=== PATIENT | female | born 1960 | race Caucasian/White ===

== ENCOUNTER 2016-04-18 07:19 | Inpatient (IN) | payer OTHER ==
[~2016-04-18] VITALS: Ht 167.6 cm; Wt 91.9 kg
[2016-04-18] VITALS (11 sets, daily range): BP systolic 82–149; BP diastolic 22–104; PULSE 124–147; RESP 30–36; TEMP 100.9; Ht 167.6 cm; Wt 91.9 kg
[2016-04-18] MEDS ORDERED: SOD CHLORIDE 0.9% 500 ML IV STA (07:21)
[2016-04-18] MEDS ORDERED: ASPIRIN 300 MG SUPP PR STA (07:21)
[2016-04-18] MEDS ORDERED: VANCOMYCIN 1 GM (PMX) 250 ML IVPB ONE (07:30)
[2016-04-18] MEDS ORDERED: PIPER-TAZO 3.375 GM IV (PMX) 100 ML IVPB STA (07:30)
[2016-04-18 07:52] LABS: ADD SCAN DIFF NO
[2016-04-18] MEDS ORDERED: SOD CHLORIDE 0.9% 1,000 ML IV ONE ×4 (08:00→12:00)
[2016-04-18 08:01] LABS: ABNORMAL IP MESSAGE 1; HEMATOCRIT 51.8 % (37.0-47.0); HEMOGLOBIN 16.1 g/dl (12.0-16.0); MEAN CORPUSCULAR HEMOGLOBIN 29.7 pg (29.0-33.0); MEAN CORPUSCULAR HGB CONC 31.1 g/dl (32.0-37.0); MEAN CORPUSCULAR VOLUME 95.6 fl (82.0-101.0); MEAN PLATELET VOLUME 11.2 fl (7.4-10.4); PLATELET COUNT 474 10^3/UL (140-415); RED BLOOD COUNT 5.42 10^6/ul (4.20-5.40); RED CELL DISTRIBUTION WIDTH 13.2 % (11.5-14.5); WHITE BLOOD COUNT 25.9 10^3/ul (4.8-10.8)
[2016-04-18 08:03] LABS: ALBUMIN 3.6 g/dl (3.3-4.9)
[2016-04-18 08:05] LABS: CREATININE 2.33 mg/dl (0.44-1.00)
[2016-04-18 08:06] LABS: ALBUMIN/GLOBULIN RATIO 1.02; BILIRUBIN,INDIRECT 0.3 mg/dl (0-1.1); BILIRUBIN,TOTAL 0.3 mg/dl (0.2-1.3); CALCIUM 8.5 mg/dl (8.4-10.2); TOTAL PROTEIN 7.1 g/dl (6.1-8.1)
[2016-04-18 08:09] LABS: INR 1.3; PROTIME 16.3 Sec (12.2-14.2); PT RATIO 1.3
[2016-04-18 08:10] LABS: PARTIAL THROMBOPLASTIN TIME 28.1 Sec (25.0-35.0)
[2016-04-18 08:27] LABS: AADO2 Arterial 410.4 mmHg (7.0-24.0); Allen Test ACCEPTAB; Arterial Base Excess -19.3 mmol/L (-3.0-3); Arterial COHb 0.1 % (0.0-3.0); Arterial Fraction of Oxyhgb 98.6 % (93.0-99.0); Arterial HCO3 7.5 mmol/L (22.0-26.0); Arterial MetHb 0.6 % (0.0-1.5); Arterial Total Hemglobin 16.7 g/dl (12.0-18.0); Blood Gas Low PEEP Setting 0 cmH2O; MODE VENT - AC
[2016-04-18 08:28] LABS: ADD UMIC YES; URINE BILIRUBIN (Dip) NEGATIVE (NEGATIVE); URINE BLOOD (Dip) 2+ (NEGATIVE); URINE COLOR YELLOW (YELLOW); URINE KETONES (Dip) NEGATIVE (NEGATIVE); URINE LEUKOCYTE ESTERASE (Dip) 1+ (NEGATIVE); URINE NITRITE (Dip) NEGATIVE (NEGATIVE); URINE TOTAL PROTEIN (Dip) 1+ (NEGATIVE); URINE UROBILINOGEN (Dip) 0.2 E.U./dL (0.1-1.0)
[2016-04-18] MEDS ORDERED: SOD CHLORIDE 0.9% 500 ML IV ONE (08:30)
--- NOTE | 2016-04-18 08:39 | RADRPT ---
PROCEDURE: Chest x-ray CLINICAL INDICATION: Chest pain TECHNIQUE: Chest single view COMPARISON: None FINDINGS: Tracheostomy tube is in good position. There is a ventriculoperitoneal shunt along the left chest w all. The heart is normal in size. The pulmonary vessels are normal in caliber. Lung volumes are lo w with mild basilar atelectasis. Lungs otherwise clear. The costophrenic angles are sharp. The vi sualized bony thorax is unremarkable. IMPRESSION: 1. Tracheostomy tube remains good position. 2. Ventriculoperitoneal shunt along the left chest wall. 3. Low lung volumes with basilar atelectasis RPTAT: HH .Kody Hernandez MD, Date Time Electronically viewed and signed by .Kody Hernandez MD, on 04/18/2016 08:38 .W/
[2016-04-18 08:45] LABS: BACTERIA,URINE MANY; SQUAMOUS EPITHELIAL CELL,UR MANY
[2016-04-18 09:33] LABS: LYMPHOCYTES # 1.3 10^3/ul (0.8-2.9); MONOCYTE # 2.6 10^3/ul (0.3-0.9); MYELOCYTES # 0.8; NEUTROPHIL # 17.1 10^3/ul (1.6-7.5); SMUDGE CELLS% Rare
[2016-04-18] MEDS ORDERED: INSULIN REGULAR, HUMAN 100 UNIT in SOD CHLORIDE 0.9% 99 ML IV STA ×2 (09:44)
[2016-04-18] MEDS ORDERED: NA POLYST SULFON 15 GM/60 ML BTL PO ONE (10:00)
--- NOTE | 2016-04-18 10:11 | ERA ---
ER Documentation Chief Complaint Date/Time DATE: 04/18/16 TIME: 09:40 Chief Complaint pt here with tachycardia, faint pulse, trach/vent pt, from [place] HPI This 55-year-old female is brought in for "unable to appreciate good vital signs " according to the snf paperwork. Very little other information was given. Going to the paramedics the heart rate was very high and according to their EKG that showed acute SC. She was brought in as a code STEMI. Patient has a trach vent patient who according to report from family to the paramedics is usually alert and oriented. She is noncommunicative at this time. ROS All systems reviewed and are negative except as per history of present illness. Medications Home Meds Reported Medications Albuterol Sulfate* (Albuterol Sulfate* Neb) 0.083%-3 Ml Neb, 2.5 MG NEB Q6 Y for SHORTNESS OF BREATH, #30 VIAL 04/18/16 Albuterol Sulfate* (Albuterol Sulfate* Neb) 0.083%-3 Ml Neb, 2.5 MG NEB Q3H Y for WHEEZING AND SOB, #30 VIAL 04/18/16 Chlorhexidine Gluconate (Peridex) 473 Ml Mouthwash, 15 ML MM Q12, BOTTLE 04/18/16 Docusate Sodium* (Colace*) 100 Mg Capsule, 100 MG GTB BID, #60 CAP 04/18/16 Heparin Sod (Porcine) (Heparin) 1,000 Unit/Ml Soln, 5000 UNIT IJ Q12 04/18/16 Levetiracetam* (Keppra* (Ped)) 100 Mg/Ml Liq, 1500 MG GTB BID for 30 Days, BOTTLE 04/18/16 Lisinopril* (Lisinopril*) 20 Mg Tablet, 20 MG GTB DAILY, #30 TAB 04/18/16 Famotidine* (Pepcid*) 20 Mg Tablet, 20 MG GTB QHS, #30 TAB 04/18/16 Levothyroxine Sodium* (Synthroid*) 75 Mcg Tablet, 75 MCG GTB BEFORE BREAKFAST, # 30 TAB 04/18/16 Acetaminophen* (Acetaminophen*) 650 Mg Tablet, 650 MG GTB DAILY Y for PAIN AND OR ELEVATED TEMP, #30 TAB 04/18/16 Acetaminophen* (Acetaminophen*) 650 Mg Tablet, 650 MG GTB TRACH CHANGE Y for PAIN AND OR ELEVATED TEMP, #30 TAB 04/18/16 Cran/Vitc/Mannose/Inulin/Brom (Uti-Stat Liquid) 3,875 Mg/30 Ml Liquid, 3875 MG GTB DAILY 04/18/16 Allergies Allergies: Coded Allergies: No Known Drug Allergies (Verified Allergy, Unknown, 04/18/16) PMhx/Soc History of Surgery: Yes (trach, g-tube) Hx Neurological Disorder: Yes (seizure) Hx Miscellaneous Medical Probl: Yes (trach/vent, thyroid, head injury) Smoking Status: Unknown if ever smoked Physical Exam Vitals Vital Signs Date Time Temp Pulse Resp B/P Pulse Ox O2 Delivery O2 Flow Rate FiO2 04/18/16 15:44 154 41 133/24 100 Mechanical Ventilator Trach Collar 04/18/16 15:30 99.7 153 41 118/33 100 Mechanical Ventilator Trach Collar 04/18/16 14:13 149 127/69 04/18/16 14:04 99.5 149 41 91/70 96 Mechanical Ventilator Trach Collar 04/18/16 12:44 99.5 143 42 87/45 98 Mechanical Ventilator Trach Collar 04/18/16 12:15 149 136/99 04/18/16 12:00 99.6 155 48 89/64 96 Mechanical Ventilator Trach Collar 04/18/16 11:27 42 96 70 04/18/16 10:13 101.0 150 34 84/62 99 Mechanical Ventilator Trach Collar 04/18/16 08:46 151 22 88/65 97 Mechanical Ventilator 04/18/16 08:28 40 100 100 04/18/16 07:35 100.2 171 18 105/37 100 Physical Exam Const: [] Ill-appearing Head: Atraumatic Eyes: Normal Conjunctiva, PERRLA, unable to assess as extraocular muscles ENT: Normal External Ears, Nose and Mouth., Dry mucous membranes of mouth Neck: , no JVD Resp: Poor inspiration with mild rhonchi on ventilator-assisted ventilations Cardio: Regular tachycardia, no murmurs appreciated Abd: Soft,, non distended. Normal bowel sounds Skin: Clammy and mottled Back: No midline or flank tenderness Ext: No cyanosis, or edema Neur: Awake and alert, some movements, unable to the assess of all 4 extremities removed., Some flinching to pain Result Diagram: 04/18/16 0742 04/18/16 1331 Results 24 hrs Laboratory Tests Test 04/18/16 07:30 04/18/16 07:42 04/18/16 08:08 04/18/16 08:17 Troponin I 0.091ng/ml Activated Partial Thromboplast Time 28.1Sec Alanine Aminotransferase (ALT/SGPT) 171IU/L Albumin 3.6g/dl Albumin/Globulin Ratio 1.02 Alkaline Phosphatase 212IU/L Anion Gap 37 Aspartate Amino Transf (AST/SGOT) 99IU/L Band Neutrophils % 15.0% Basophils # 10^3/ul Basophils % % Blood Urea Nitrogen 33mg/dl Calcium Level 8.5mg/dl Carbon Dioxide Level 9mmol/L Chloride Level 97mmol/L Creatinine 2.33mg/dl Differential Comment MANUAL DIF Direct Bilirubin 0.00mg/dl Eosinophils # 10^3/ul Eosinophils % % Globulin 3.50g/dl Glucose Level 939mg/dl Hematocrit 51.8% Hemoglobin 16.1g/dl INR International Normalized Ratio 1.30 Indirect Bilirubin 0.3mg/dl Lactic Acid Level 16.5mmol/L Lymphocytes # 1.310^3/ul Lymphocytes % 5.0% Mean Corpuscular Hemoglobin 29.7pg Mean Corpuscular Hemoglobin Concent 31.1g/dl Mean Corpuscular Volume 95.6fl Mean Platelet Volume 11.2fl Metamyelocytes # 0.3 Metamyelocytes % 1.0% Monocytes # 2.610^3/ul Monocytes % 10.0% Myelocytes # 0.8 Myelocytes % 3.0% Neutrophils # 17.110^3/ul Neutrophils % 66.0% Nucleated Red Blood Cells # 10^3/ul Nucleated Red Blood Cells % /100WBC Platelet Count 77754^3/UL Potassium Level 6.0mmol/L Prothrombin Time 16.3Sec Prothrombin Time Ratio 1.3 Red Blood Count 5.4210^6/ul Red Cell Distribution Width 13.2% Smudge Cells Rare Sodium Level 137mmol/L Total Bilirubin 0.3mg/dl Total Protein 7.1g/dl White Blood Count 25.910^3/ul Urine Bacteria MANY Urine Bilirubin NEGATIVE Urine Clarity SLIGHTLY CLOUDY Urine Color YELLOW Urine Glucose 0.5%% Urine Hemoglobin 2+ Urine Ketones NEGATIVE Urine Leukocyte Esterase 1+ Urine Microscopic RBC 2-5/HPF Urine Microscopic WBC 2-5/HPF Urine Nitrite NEGATIVE Urine Specific [place] 1.025 Urine Squamous Epithelial Cells MANY Urine Total Protein 1+ Urine Urobilinogen 0.2 E.U./dL Urine pH 5.0 Arterial Blood HCO3 7.5mmol/L Arterial Blood Base Excess -19.3mmol/L Arterial Blood Oxygen Saturation 99.3mmHG David Test ACCEPTAB Arterial Blood Gas Puncture Site Right Radial Arterial Blood Carboxyhemoglobin 0.1% Arterial Blood Date Drawn 04/18/2016 8:20:52 AM Arterial Blood Methemoglobin 0.6% Arterial Blood pCO2 (Temp correct) 22.0mmhg Arterial Blood pH (Temp corrected) 7.151 Arterial Blood pO2 (Temp corrected) 280.6mmHG Blood Gas A-a O2 Differential 410.4mmHg Blood Gas Actual Respiration Rate 40 Blood Gas Critical Value Read Back DR. BEAULIEU Blood Gas Low PEEP Setting 0cmH2O Blood Gas Modality VENT - AC Blood Gas Notified Time 04/18/2016 8:27:48 AM Blood Gas Notified Whom RT Blood Gas Respiration Rate 16.0 Blood Gas Specimen Source Blood arterial Blood Gas Temperature 37.0C Blood Gas Tidal Volume 500.0mL FiO2 100.0% Oxyhemoglobin Percent 98.6% Total Hemoglobin 16.7g/dl Test 04/18/16 09:55 04/18/16 10:31 04/18/16 11:56 04/18/16 12:20 Lactic Acid Level 10.9mmol/L 9.6mmol/L Bedside Glucose > 595mg/dL > 595mg/dL Anion Gap 23 Blood Urea Nitrogen 35mg/dl Calcium Level 7.2mg/dl Carbon Dioxide Level 10mmol/L Chloride Level 110mmol/L Creatinine 2.05mg/dl Glucose Level 636mg/dl Potassium Level 4.2mmol/L Sodium Level 139mmol/L Test 04/18/16 12:55 04/18/16 13:31 04/18/16 13:32 04/18/16 14:12 Bedside Glucose 507mg/dL 434mg/dL Anion Gap 22 Blood Urea Nitrogen 35mg/dl Calcium Level 7.0mg/dl Carbon Dioxide Level 11mmol/L Chloride Level 112mmol/L Creatine Kinase 146IU/L Creatine Kinase Index 1.5 Creatinine 1.95mg/dl Creatinine Kinase MB (Mass) 2.21ng/ml Glucose Level 534mg/dl Potassium Level 3.9mmol/L Sodium Level 141mmol/L Troponin I 0.112ng/ml Arterial Blood HCO3 8.0mmol/L Arterial Blood Base Excess -18.1mmol/L Arterial Blood Oxygen Saturation 94.7mmHG David Test ACCEPTAB Arterial Blood Gas Puncture Site Right Radial Arterial Blood Carboxyhemoglobin 0.1% Arterial Blood Date Drawn 04/18/2016 1:40:00 PM Arterial Blood Methemoglobin 0.5% Arterial Blood pCO2 (Temp correct) 21.4mmhg Arterial Blood pH (Temp corrected) 7.193 Arterial Blood pO2 (Temp corrected) 82.3mmHG Blood Gas A-a O2 Differential 393.8mmHg Blood Gas Actual Respiration Rate 48 Blood Gas Critical Value Read Back DR. GOULD Blood Gas Low PEEP Setting 0cmH2O Blood Gas Modality VENT - AC Blood Gas Notified Time 04/18/2016 1:44:38 PM Blood Gas Notified Whom RT Blood Gas Respiration Rate 16.0 Blood Gas Specimen Source Blood arterial Blood Gas Temperature 37.0C Blood Gas Tidal Volume 500.0mL FiO2 70.0% Oxyhemoglobin Percent 94.1% Total Hemoglobin 14.4g/dl Test 04/18/16 15:04 Bedside Glucose 446mg/dL Current Medications Medications (Trade) Dose Ordered Sig/Rio Route PRN Reason Start Time Stop Time Status Last Admin Dose Admin Sodium Chloride (NS) 500 ml @ 500 mls/hr Q1H STAT IV 04/18/16 07:21 04/18/16 08:20 DC 04/18/16 07:53 Aspirin 300 mg 300 mg ONCE STAT OH 04/18/16 07:21 04/18/16 07:26 DC 04/18/16 07:53 Vancomycin HCl 250 ml @ 125 mls/hr ONCE ONCE IVPB 04/18/16 07:30 04/18/16 09:29 DC 04/18/16 07:30 Piperacillin Sod/ Tazobactam Sod 100 ml @ 200 mls/hr ONCE STAT IVPB 04/18/16 07:30 04/18/16 07:59 DC 04/18/16 07:53 Sodium Chloride 1,000 ml @ 1,000 mls/hr Q1H ONCE IV 04/18/16 08:00 04/18/16 08:59 DC 04/18/16 07:53 Sodium Chloride 1,000 ml @ 1,000 mls/hr Q1H ONCE IV 04/18/16 08:30 04/18/16 09:29 DC 04/18/16 08:30 Sodium Chloride 500 ml @ 500 mls/hr Q1H ONCE IV 04/18/16 08:30 04/18/16 09:29 DC 04/18/16 09:00 Insulin Human Regular/Sodium Chloride (Humulin R/NS) 100 ml @ 9 mls/hr TITRATE STAT IV 04/18/16 09:44 04/18/16 10:42 DC Sodium Polystyrene Sulfonate (Kayexalate) 30 gm ONCE ONCE PO 04/18/16 10:00 04/18/16 10:04 DC 04/18/16 10:45 Diagnostic Test (Pha) (Accucheck) 1 ea Q1H XX 04/18/16 10:30 04/18/16 14:07 Dextrose (D50w Syringe) 50 ml PRN PRN IV DECREASED GLUCOSE 04/18/16 10:30 04/18/16 10:45 Acetaminophen 650 mg 650 mg ONCE ONCE OH 04/18/16 10:30 04/18/16 10:31 DC 04/18/16 10:45 Insulin Human Regular 100 unit/ Sodium Chloride 100 ml @ 0 mls/hr PER PROTOCOL IV 04/18/16 11:00 04/18/16 19:00 04/18/16 11:05 Sodium Chloride 1,000 ml @ 1,000 mls/hr Q1H ONCE IV 04/18/16 12:00 04/18/16 12:59 DC 04/18/16 12:04 Sodium Chloride 1,000 ml @ 1,000 mls/hr Q1H ONCE IV 04/18/16 12:00 04/18/16 12:59 DC 04/18/16 12:04 Norepinephrine 250 ml @ ud STK-MED ONCE .ROUTE 04/18/16 13:34 04/18/16 13:35 DC Norepinephrine 250 ml @ 1.875 mls/ hr TITRATE IV 04/18/16 14:00 04/19/16 07:00 04/18/16 13:51 Norepinephrine 16 mg/Dextrose 500 ml @ 0 mls/hr TITRATE IV 04/19/16 07:00 Sodium Chloride 1,000 ml @ 75 mls/hr [id number] IV 04/18/16 14:30 04/18/16 15:42 DC 04/18/16 15:24 Sodium Chloride 1,000 ml @ 100 mls/hr Q10H IV 04/18/16 16:00 04/18/16 15:56 Lactated Ringer's 1,000 ml @ 1,000 mls/hr Q1H ONCE IV 04/18/16 16:00 04/18/16 16:59 04/18/16 15:56 Lactated Ringer's (Lr) 1,000 ml @ 150 mls/hr Q6H40M IV 04/18/16 16:00 04/19/16 06:00 Procedures/MDM Extremely ill severely dehydrated patient in DKA/HHS. Likely UTI with sepsis. Patient is given 3 L of IV normal saline which slowly decreased her extremely fast sinus tachycardia. Vancomycin and Zosyn were given empirically. Patient's blood pressure began to be low on several readings. Central line was placed. Patient is she draining well on vent settings which I have established. Acidotic. Insulin drip started. Patient given Kayexalate for a potassium of 6. Potassium is likely decrease with insulin drip. No pressors have been needed yet and blood pressure is somewhat responding to IV fluids. Patient has signs of multiple organ dysfunction other sepsis. Has mildly elevated LFTs, obvious renal failure, possible cardiac dysfunction, multiple metabolic abnormalities. Will be admitting to Dr. Bard arevalo to the intensive care unit. Code STEMI had been called in patient first arrived due to ST elevations. Spoke with , cnc manager, believes this is sinus tachycardia and dehydration unnecessarily STEMI at this time. Believes that fluid hydration will be appropriate. I tend to agree with her and kill STEMI was called off. 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 This does not include any billable procedures Central line note: The IJ central line was placed for patient with decreasing blood pressure and severe sepsis, ultrasound guidance was used after chlorhexidine wipe and anesthesia with 3 mL of lidocaine without epinephrine. Seldinger technique was used to easily introduce a 7 [place] triple-lumen catheter in the left IJ. All ports flushed well. Good blood flow to all ports, patient tied the procedure was no complications. Confirmation chest x-ray is pending. Perfusion Reassessment for Septic Shock: Time 1037 Temp 100.2, Pulse 141, RR 16, BP 91 / 66 Heart Exam: Tachycardic Lung Exam: No Crackles, mild rhonchi, poor inspiration Capillary Refill: Delayed, approximately 2 seconds Peripheral Pulses: Radially present Skin: Not mottled, not pale Departure Diagnosis: Primary Impression: Septic shock Additional Impressions: DKA (diabetic ketoacidoses) Severe dehydration Acute kidney injury Elevated liver function tests Hyperkalemia UTI (urinary tract infection) Condition: Critical JOEL BEAULIEU DO Apr 18, 2016 10:00
[2016-04-18] MEDS ORDERED: ACETAMINOPHEN 650 MG SUPP PR ONE (10:30)
[2016-04-18] MEDS ORDERED: INSULIN REGULAR, HUMAN 100 UNIT in SOD CHLORIDE 0.9% 99 ML IV SCH ×4 (11:00→22:30)
[2016-04-18] MEDS ORDERED: CRAN3875 GTB (11:08)
[2016-04-18] MEDS ORDERED: ACET-2047 GTB ×2 (11:09→11:10)
[2016-04-18] MEDS ORDERED: SYN75 GTB (11:10)
[2016-04-18] MEDS ORDERED: FAMO-18 GTB (11:11)
[2016-04-18] MEDS ORDERED: LISI20TA11 GTB (11:12)
[2016-04-18] MEDS ORDERED: KEP100S GTB (11:13)
[2016-04-18] MEDS ORDERED: HEP30MU30 IJ (11:14)
[2016-04-18] MEDS ORDERED: DOCU-144 GTB (11:14)
[2016-04-18] MEDS ORDERED: CHLO473M4 MM (11:15)
[2016-04-18] MEDS ORDERED: ALBU2.5V3 NEB ×2 (11:16)
[2016-04-18] MEDS: ACCUCHECK XX SCH ×13 (11:30→23:35)
[2016-04-18] MEDS ORDERED: NORepinephrine 8MG/250 ML (PMX 250 ML ONE (13:34)
[2016-04-18 13:43] LABS: POTASSIUM 4.2 mmol/L (3.5-5.1)
[2016-04-18 13:44] LABS: AADO2 Arterial 393.8 mmHg (7.0-24.0); Allen Test ACCEPTAB; Arterial Base Excess -18.1 mmol/L (-3.0-3); Arterial COHb 0.1 % (0.0-3.0); Arterial Fraction of Oxyhgb 94.1 % (93.0-99.0); Arterial MetHb 0.5 % (0.0-1.5); Arterial Total Hemglobin 14.4 g/dl (12.0-18.0); Blood Gas Low PEEP Setting 0 cmH2O; MODE VENT - AC
[2016-04-18 13:46] LABS: CREATININE 2.05 mg/dl (0.44-1.00)
[2016-04-18 13:47] LABS: CALCIUM 7.2 mg/dl (8.4-10.2)
[2016-04-18 13:57] LABS: POTASSIUM 3.9 mmol/L (3.5-5.1)
[2016-04-18 13:59] LABS: CREATININE 1.95 mg/dl (0.44-1.00)
[2016-04-18] MEDS ORDERED: NORepinephrine 8MG/250 ML (PMX 250 ML IV SCH (14:00)
--- NOTE | 2016-04-18 14:01 | CONS ---
Date/Time of Note Date/Time of Note DATE: 04/18/16 TIME: 13:56 Assessment/Plan Assessment/Plan Additional Assessment/Plan Labs and chest x-ray as well as ventilator settings were reviewed. Assessment recommendations; 1. Patient admitted with hypotension as well as severe hyperglycemia with severe metabolic acidosis from DKA. 2. Possibly underlying sepsis. Patient adequately fluid resuscitated, currently on Levophed drip. 3. On broad-spectrum antibiotic coverage. 4. History of seizure disorder. 5. History of craniotomy. Continue current supportive care. Maintain insulin drip. Continue IV hydration. Continue current antibiotics. Pulmonary ABG in about 3 hours time. Gnosis remains guarded. Resume patient's antiseizure medications. Consultation Date/Type/Reason Admit Date/Time Date of Consultation: Apr 18, 2016 Type of Consultation: Pulmonary/critical care Reason for Consultation 55-year-old F [place] lady transferred from long term with complaints of "unstable" vital signs. Upon evaluation here the patient was found to be in severe dehydration as well as DKA with severe metabolic acidosis and sepsis. History presenting his; patient is a 55-year-old F [place] lady who is a resident of long term on chronic ventilator unit. The patient was sent over to [facility] because of stable vital signs with hypotension. Upon evaluation here the patient was found to be severely dehydrated with DKA and severe metabolic acidosis. Patient has been fluid resuscitated and start started on insulin drip. Also started on broad-spectrum antibiotic coverage because of significant leukocytosis. Because of underlying history of craniotomy and anoxic brain injury patient is unable to give any history whatsoever. History was obtained from medical records. 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 2. Chronic respiratory failure. 3. History of G-tube placement. 4. History of diabetes. 5. History of seizure disorder. 6. Chronic ventilator dependence. Medications; were reviewed. Allergies; none. Social history; noncontributory. Family history; patient does have a supportive family. Occupational history; noncontributory. Review of systems; currently unable to be obtained. Social History Smoking Status: Unknown if ever smoked Exam/Review of Systems Vital Signs Vitals Vital Signs Date Time Temp Pulse Resp B/P Pulse Ox O2 Delivery O2 Flow Rate FiO2 04/18/16 12:44 99.5 143 42 87/45 98 Mechanical Ventilator Trach Collar 04/18/16 11:27 70 Exam HEENT examination; supple neck, no JVD. No lymphadenopathy. Tracheostomy in place with clean insertion site. Patient has small pupils bilaterally with mild ocular tremor. There is a very large right parietal. Depression in the skull with no underlying bone felt on examination. Chest examination; clear to auscultation bilaterally. S1-S2 audible, no murmurs. Tachycardic. Regular rhythm. Abdomen examination; protuberant, G-tube in place. Bowel sounds audible. Extremity examination; no peripheral edema. 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 Results Result Diagram: 04/18/16 0742 04/18/16 1220 Results 24 hrs Laboratory Tests Test 04/18/16 07:30 04/18/16 07:42 04/18/16 08:08 04/18/16 08:17 Troponin I 0.091 Activated Partial Thromboplast Time 28.1 Alanine Aminotransferase (ALT/SGPT) 171 H Albumin 3.6 Albumin/Globulin Ratio 1.02 Alkaline Phosphatase 212 H Anion Gap 37 H Aspartate Amino Transf (AST/SGOT) 99 H Band Neutrophils % 15.0 H Basophils # Basophils % Blood Urea Nitrogen 33 H Calcium Level 8.5 Carbon Dioxide Level 9 *L Chloride Level 97 Creatinine 2.33 H Differential Comment MANUAL DIF Direct Bilirubin 0.00 Eosinophils # Eosinophils % Globulin 3.50 H Glucose Level 939 *H Hematocrit 51.8 H Hemoglobin 16.1 H INR International Normalized Ratio 1.30 Indirect Bilirubin 0.3 Lactic Acid Level 16.5 *H Lymphocytes # 1.3 Lymphocytes % 5.0 L Mean Corpuscular Hemoglobin 29.7 Mean Corpuscular Hemoglobin Concent 31.1 L Mean Corpuscular Volume 95.6 Mean Platelet Volume 11.2 H Metamyelocytes # 0.3 Metamyelocytes % 1.0 H Monocytes # 2.6 H Monocytes % 10.0 Myelocytes # 0.8 Myelocytes % 3.0 H Neutrophils # 17.1 H Neutrophils % 66.0 Nucleated Red Blood Cells # Nucleated Red Blood Cells % Platelet Count 474 H Potassium Level 6.0 H Prothrombin Time 16.3 H Prothrombin Time Ratio 1.3 Red Blood Count 5.42 H Red Cell Distribution Width 13.2 Smudge Cells Rare Sodium Level 137 Total Bilirubin 0.3 Total Protein 7.1 White Blood Count 25.9 H Urine Bacteria MANY Urine Bilirubin NEGATIVE Urine Clarity SLIGHTLY CLOUDY Urine Color YELLOW Urine Glucose 0.5% H Urine Hemoglobin 2+ H Urine Ketones NEGATIVE Urine Leukocyte Esterase 1+ H Urine Microscopic RBC 2-5 Urine Microscopic WBC 2-5 Urine Nitrite NEGATIVE Urine Specific [place] 1.025 Urine Squamous Epithelial Cells MANY Urine Total Protein 1+ H Urine Urobilinogen 0.2 E.U./dL Urine pH 5.0 Arterial Blood HCO3 7.5 *L Arterial Blood Base Excess -19.3 L Arterial Blood Oxygen Saturation 99.3 H David Test ACCEPTAB Arterial Blood Gas Puncture Site Right Radial Arterial Blood Carboxyhemoglobin 0.1 Arterial Blood Date Drawn 04/18/2016 8:20:52 AM Arterial Blood Methemoglobin 0.6 Arterial Blood pCO2 (Temp correct) 22.0 L Arterial Blood pH (Temp corrected) 7.151 *L Arterial Blood pO2 (Temp corrected) 280.6 H Blood Gas A-a O2 Differential 410.4 H Blood Gas Actual Respiration Rate 40 Blood Gas Critical Value Read Back DR. BEAULIEU Blood Gas Low PEEP Setting 0 Blood Gas Modality VENT - AC Blood Gas Notified Time 04/18/2016 8:27:48 AM Blood Gas Notified Whom RT Blood Gas Respiration Rate 16.0 Blood Gas Specimen Source Blood arterial Blood Gas Temperature 37.0 Blood Gas Tidal Volume 500.0 FiO2 100.0 Oxyhemoglobin Percent 98.6 Total Hemoglobin 16.7 Test 04/18/16 09:55 04/18/16 10:31 04/18/16 11:56 04/18/16 12:20 Lactic Acid Level 10.9 *H 9.6 *H Bedside Glucose > 595 *H > 595 *H Anion Gap 23 #H Blood Urea Nitrogen 35 H Calcium Level 7.2 L Carbon Dioxide Level 10 L Chloride Level 110 # Creatinine 2.05 H Glucose Level 636 #*H Potassium Level 4.2 Sodium Level 139 Test 04/18/16 12:55 04/18/16 13:32 Bedside Glucose 507 *H Arterial Blood HCO3 8.0 *L Arterial Blood Base Excess -18.1 L Arterial Blood Oxygen Saturation 94.7 L David Test ACCEPTAB Arterial Blood Gas Puncture Site Right Radial Arterial Blood Carboxyhemoglobin 0.1 Arterial Blood Date Drawn 04/18/2016 1:40:00 PM Arterial Blood Methemoglobin 0.5 Arterial Blood pCO2 (Temp correct) 21.4 L Arterial Blood pH (Temp corrected) 7.193 *L Arterial Blood pO2 (Temp corrected) 82.3 Blood Gas A-a O2 Differential 393.8 H Blood Gas Actual Respiration Rate 48 Blood Gas Critical Value Read Back DR. GOULD Blood Gas Low PEEP Setting 0 Blood Gas Modality VENT - AC Blood Gas Notified Time 04/18/2016 1:44:38 PM Blood Gas Notified Whom RT Blood Gas Respiration Rate 16.0 Blood Gas Specimen Source Blood arterial Blood Gas Temperature 37.0 Blood Gas Tidal Volume 500.0 FiO2 70.0 Oxyhemoglobin Percent 94.1 Total Hemoglobin 14.4 Medications Medications Current Medications Diagnostic Test (Pha) (Accucheck) 1 ea Q1H XX Last administered on 04/18/16 12 :55; Admin Dose 1 EA; Start 04/18/16 at 10:30 Dextrose 50 ml 50 ml PRN PRN IV DECREASED GLUCOSE Last administered on 10:45; Admin Dose 50 ML; Start 04/18/16 at 10:30 Norepinephrine 250 ml @ 1.875 mls/ hr TITRATE IV Last administered on 13:51; Admin Dose 3.75 MLS/HR; Start 04/18/16 at 14:00; Stop 04/19/16 at 07 :00 Norepinephrine/ Dextrose (Levophed/D5W) 500 ml @ 0 mls/hr TITRATE IV ; Start at 07:00 LENA LIZAMA Apr 18, 2016 14:01
[2016-04-18 14:09] LABS: CK-MB 2.21 ng/ml (0.0-2.4)
[2016-04-18 14:12] LABS: TROPONIN-I 0.112 ng/ml (0.00-0.12)
[2016-04-18] MEDS: SOD CHLORIDE 0.9% 1,000 ML IV SCH ×4 (15:00→23:03)
[2016-04-18] MEDS ORDERED: LACTATED RINGER'S 1,000 ML IV SCH (16:00)
[2016-04-18] MEDS ORDERED: LACTATED RINGER'S 1,000 ML IV ONE (16:00)
--- NOTE | 2016-04-18 16:29 | RADRPT ---
PROCEDURE: Retroperitoneal ultrasound. CLINICAL INDICATION: Acute renal failure TECHNIQUE: Dawson scale and color doppler ultrasound images of the retroperitoneum, kidneys, urinary bladder COMPARISON: No prior studies are available for comparison. FINDINGS: Right kidney 9.9 cm in length. Right renal cortical thickness is preserved. Left kidney 9.9 cm in length. Left renal cortical thickness is preserved. Normal echogenicity. No hydronephrosis. Right renal calculi are present measuring up to 7.7 mm. Left renal calculi are present measuring up to 6.8 mm. No focal cyst or solid lesion is seen within the kidneys. Bladder: Undistended. Incidental finding of distended gallbladder containing multiple gallstones. Questionable mild perihepatic ascites. IMPRESSION: Bilateral nonobstructive renal calculi measuring up to 7.7 mm. No hydronephrosis. Partially visualized multiple gallstones within the gallbladder. Gallbladder wall appears of normal thickness however is incompletely visualized. Right upper quadrant ultrasound is recommended. Questionable mild perihepatic ascites is incompletely visualized. CT scan of the abdomen and pelvis can be obtained for further evaluation. RPTAT: AADD .Edward Heredia MD, MD Date Time Electronically viewed and signed by .Edward Heredia MD, on 04/18/2016 16:29 .B/
[2016-04-18 16:36] LABS: POTASSIUM 4.9 mmol/L (3.5-5.1)
[2016-04-18 16:38] LABS: CREATININE 2.38 mg/dl (0.44-1.00)
[2016-04-18 16:39] LABS: CALCIUM 7.8 mg/dl (8.4-10.2)
[2016-04-18] MEDS ORDERED: ACETAMINOPHEN 325 MG TAB GTB PRN ×2 (17:00)
[2016-04-18] MEDS ORDERED: ALBUTEROL 0.083% (NEB) 2.5 MG/3 ML AMP NEB PRN ×2 (17:00)
--- NOTE | 2016-04-18 17:16 | HP ---
Date/Time of Note Date/Time of Note DATE: 04/18/16 TIME: 16:40 Assessment/Plan VTE Prophylaxis VTE Prophylaxis Intervention: heparin, other Lines/Catheters IV Catheter Type (from Nrsg): Saline Lock Assessment/Plan Assessment/Plan Septic shock - ID Consult- dr Garvin DKA (diabetic ketoacidoses) - endo consult- Dr Martinez - insulin drip Severe dehydration Acute kidney injury - Nephrology consult- dr Wang Elevated liver function tests - VDRF - Pulmonary consult - Dr Garcia notified Hyperkalemia- resolved - per nephrology UTI (urinary tract infection) - sp Vanco/Zosyn - per ID Seizures - seizure precautions - keppra DM - Glycemic control - HB aic AM Thrombocytosis - PLAN - Admit to ICU dw dr Gramajo.staff/family HPI/ROS Admit Date/Time Admit Date/Time Hx of Present Illness pt here with tachycardia, faint pulse, trach/vent pt, from [place] HPI This 55-year-old female is brought in for "unable to appreciate good vital signs " according to the senior care paperwork. Very little other information was given. Going to the paramedics the heart rate was very high and according to their EKG that showed acute WI. She was brought in as a code STEMI. Patient has a trach vent patient who according to report from family to the paramedics is usually alert and oriented. She is noncommunicative at this time. ROS All systems reviewed and are negative except as per history of present illness. Medications Home Meds Reported Medications Albuterol Sulfate* (Albuterol Sulfate* Neb) 0.083%-3 Ml Neb, 2.5 MG NEB Q6 Y for SHORTNESS OF BREATH, #30 VIAL 04/18/16 Albuterol Sulfate* (Albuterol Sulfate* Neb) 0.083%-3 Ml Neb, 2.5 MG NEB Q3H Y for WHEEZING AND SOB, #30 VIAL 04/18/16 Chlorhexidine Gluconate (Peridex) 473 Ml Mouthwash, 15 ML MM Q12, BOTTLE 04/18/16 Docusate Sodium* (Colace*) 100 Mg Capsule, 100 MG GTB BID, #60 CAP 04/18/16 Heparin Sod (Porcine) (Heparin) 1,000 Unit/Ml Soln, 5000 UNIT IJ Q12 04/18/16 Levetiracetam* (Keppra* (Ped)) 100 Mg/Ml Liq, 1500 MG GTB BID for 30 Days, BOTTLE 04/18/16 Lisinopril* (Lisinopril*) 20 Mg Tablet, 20 MG GTB DAILY, #30 TAB 04/18/16 Famotidine* (Pepcid*) 20 Mg Tablet, 20 MG GTB QHS, #30 TAB 04/18/16 Levothyroxine Sodium* (Synthroid*) 75 Mcg Tablet, 75 MCG GTB BEFORE BREAKFAST, # 30 TAB 04/18/16 Acetaminophen* (Acetaminophen*) 650 Mg Tablet, 650 MG GTB DAILY Y for PAIN AND OR ELEVATED TEMP, #30 TAB 04/18/16 Acetaminophen* (Acetaminophen*) 650 Mg Tablet, 650 MG GTB TRACH CHANGE Y for PAIN AND OR ELEVATED TEMP, #30 TAB 04/18/16 Cran/Vitc/Mannose/Inulin/Brom (Uti-Stat Liquid) 3,875 Mg/30 Ml Liquid, 3875 MG GTB DAILY 04/18/16 Allergies Allergies: Coded Allergies: No Known Drug Allergies (Verified Allergy, Unknown, 04/18/16) ROS PMhx/Soc History of Surgery: Yes (trach, g-tube) Hx Neurological Disorder: Yes (seizure) Hx Miscellaneous Medical Probl: Yes (trach/vent, thyroid, head injury) Smoking Status: Unknown if ever smoked PMH/Family/Social Social History Smoking Status: Unknown if ever smoked Exam/Review of Systems Vital Signs Vitals Vital Signs Date Time Temp Pulse Resp B/P Pulse Ox O2 Delivery O2 Flow Rate FiO2 04/18/16 16:24 152 45 110/55 94 Mechanical Ventilator Trach Collar 04/18/16 16:14 70 04/18/16 15:30 99.7 Exam Constitutional: non-verbal Psych: confusion Eyes: nl sclera Neck: non-tender Respiratory: diminished breath sounds Cardiovascular: nl pulses Gastrointestinal: non-tender, other, soft Neurological: lethargic Labs Result Diagram: 04/18/16 0742 04/18/16 1331 Medications Medications Current Medications Diagnostic Test (Pha) (Accucheck) 1 ea Q1H XX Last administered on 04/18/16 16 :25; Admin Dose 1 EA; Start 04/18/16 at 10:30 Dextrose 50 ml 50 ml PRN PRN IV DECREASED GLUCOSE Last administered on 10:45; Admin Dose 50 ML; Start 04/18/16 at 10:30 Norepinephrine 250 ml @ 1.875 mls/ hr TITRATE IV Last administered on 13:51; Admin Dose 3.75 MLS/HR; Start 04/18/16 at 14:00; Stop 04/19/16 at 07 :00 Norepinephrine 16 mg/Dextrose 500 ml @ 0 mls/hr TITRATE IV ; Start 04/19/16 at 07:00 Sodium Chloride 1,000 ml @ 100 mls/hr Q10H IV Last administered on 04/18/16 15:56; Admin Dose 100 MLS/HR; Start 04/18/16 at 16:00 Lactated Ringer's 1,000 ml @ 1,000 mls/hr Q1H ONCE IV Last administered on 15:56; Admin Dose 1,000 MLS/HR; Start 04/18/16 at 16:00; Stop 04/18/16 at 16:59 Lactated Ringer's (Lr) 1,000 ml @ 150 mls/hr Q6H40M IV ; Start 04/18/16 at 16: 00; Stop 04/19/16 at 06:00 CAT HAY Apr 18, 2016 16:54
[2016-04-18 17:28] LABS: AADO2 Arterial 399.6 mmHg (7.0-24.0); Allen Test ACCEPTAB; Arterial Base Excess -17.3 mmol/L (-3.0-3); Arterial COHb 0.3 % (0.0-3.0); Arterial HCO3 8.2 mmol/L (22.0-26.0); Arterial MetHb 0.4 % (0.0-1.5); Arterial Total Hemglobin 14.9 g/dl (12.0-18.0); Blood Gas Low PEEP Setting 0 cmH2O; MODE VENT - AC
[2016-04-18 17:36] LABS: PROTEIN URINE 45.3 mg/dl (0.0-9.9); PROTEIN/CREAT RATIO 0.41 RATIO
[2016-04-18] MEDS ORDERED: PIPER-TAZO 2.25 GM (PMX) 50 ML IVPB SCH (18:00)
[2016-04-18 18:49] LABS: POTASSIUM 5.1 mmol/L (3.5-5.1)
[2016-04-18 18:51] LABS: CREATININE 2.51 mg/dl (0.44-1.00)
[2016-04-18 18:52] LABS: CALCIUM 7.8 mg/dl (8.4-10.2)
[2016-04-18] MEDS: IMIPENEM-CILAST 250MG IV (PMX) 100 ML IVPB SCH (19:01)
[2016-04-18 19:02] LABS: CK-MB 3.73 ng/ml (0.0-2.4)
[2016-04-18 19:14] LABS: TROPONIN-I 0.146 ng/ml (0.00-0.12)
[2016-04-18 20:37] LABS: POTASSIUM 5.5 mmol/L (3.5-5.1)
[2016-04-18 20:39] LABS: CREATININE 2.62 mg/dl (0.44-1.00)
[2016-04-18 20:40] LABS: CALCIUM 7.6 mg/dl (8.4-10.2)
[2016-04-18] MEDS ORDERED: LEVETIRACETAM (100 MG/ML) 5ML CUP GTB SCH (21:00)
[2016-04-18] MEDS ORDERED: CHLORHEXIDINE GLUCONATE 15 ML UD CUP MM SCH (21:00)
[2016-04-18] MEDS ORDERED: FAMOTIDINE 20 MG TAB GTB SCH (21:00)
[2016-04-18] MEDS ORDERED: DOCUSATE SODIUM 10 MG/ML (10ML CUP) GTB SCH (21:00)
[2016-04-18] MEDS ORDERED: HEPARIN 5,000 UNIT/0.5 ML SYG SC SCH (21:00)
[2016-04-18] MEDS ORDERED: SOD CHLORIDE 0.45% 1,000 ML IV SCH (21:00)
--- NOTE | 2016-04-18 21:10 | RADRPT ---
PROCEDURE: XR Abdomen. CLINICAL INDICATION: NG tube placement TECHNIQUE: AP abdomen x-ray. COMPARISON: None. FINDINGS: NG tube is present with the tip within the mildly gas-distended stomach. A possible balloon tipped gastrostomy tube along the left lateral aspect of the stomach has a balloon overlying the greater cu rvature of the stomach. There is a gas-distended loop of bowel likely representing transverse colon . There is abundant stool in the distal aspect of the probable transverse colon and rectosigmoid co tyson.. Calcified gallstones present.. There are degenerative changes of the lumbar spine. A probable RIP SAW OPERATOR shunt catheter tip is in the pelvis. IMPRESSION: 1. NG tube tip in stomach. 2. Possible gastrostomy tube versus catheter overlying the left abdomen. 3. Gas-distended probable proximal to mid sigmoid colon. Abundant stool of the distal left colon a nd rectosigmoid colon suggesting constipation. 4. RIP SAW OPERATOR shunt catheter tip is in the pelvis. 5. Gallstones. RPTAT: [facility]K .Malcolm Batista MD, Date Time Electronically viewed and signed by .Malcolm Batista MD, on 04/18/2016 21:09 .K/
[2016-04-18] MEDS ORDERED: SODIUM BICARBONATE (IV ADD) 150 MEQ in SOD CHLORIDE 0.45% 1,000 ML IV SCH (22:30)
[2016-04-18] MEDS ORDERED: METOPROLOL 5 MG INJ IV PRN (23:00)
[2016-04-18 23:19] LABS: CALCIUM 7.8 mg/dl (8.4-10.2); CREATININE 3.05 mg/dl (0.44-1.00)
[2016-04-18] MEDS: PHENYLephrine 40 MG in DEXTROSE 5% 496 ML IV SCH (23:35)
[2016-04-19] VITALS (14 sets, daily range): BP systolic 70–116; BP diastolic 26–89; PULSE 63–158; RESP 19–38
[2016-04-19] MEDS ORDERED: ALBUTEROL HFA 8 GM INHALER INH PRN
[2016-04-19] MEDS: ACCUCHECK XX SCH ×3 (01:00→02:46)
[2016-04-19] MEDS: IMIPENEM-CILAST 250MG IV (PMX) 100 ML IVPB SCH (02:04)
[2016-04-19 03:10] LABS: ALBUMIN 1.8 g/dl (3.3-4.9)
[2016-04-19 03:13] LABS: BILIRUBIN,DIRECT 0.1 mg/dl (0.00-0.20); BILIRUBIN,INDIRECT 0.3 mg/dl (0-1.1); BILIRUBIN,TOTAL 0.4 mg/dl (0.2-1.3); CREATININE 3.57 mg/dl (0.44-1.00)
[2016-04-19 03:14] LABS: ALBUMIN/GLOBULIN RATIO 0.78; CALCIUM 11.1 mg/dl (8.4-10.2); MAGNESIUM 3.3 mg/dl (1.7-2.5); PHOSPHORUS 10.1 mg/dl (2.5-4.9); TOTAL PROTEIN 4.1 g/dl (6.1-8.1)
[2016-04-19] MEDS: PHENYLephrine 40 MG in DEXTROSE 5% 496 ML IV SCH (03:26)
[2016-04-19 03:28] LABS: POTASSIUM 6.6 mmol/L (3.5-5.1)
[2016-04-19 03:32] LABS: TROPONIN-I 0.194 ng/ml (0.00-0.12)
[2016-04-19] MEDS ORDERED: LEVOTHYROXINE 75 MCG TAB GTB SCH (07:00)
--- NOTE | 2016-04-19 07:15 | CONS ---
DATE OF ADMISSION: 04/18/2016 DATE OF CONSULTATION: 04/18/2016 REFERRING PHYSICIAN: Dr. Dos Santos. REASON FOR CONSULTATION: Acute kidney injury. TYPE OF CONSULTATION: Nephrology. HISTORY OF PRESENT ILLNESS: This is a 55-year-old female with a past medical history of diabetes me llitus, who has been transferred from the correction with unstable vital signs. The patient was f ound to have severe dehydration as well as diabetic ketoacidosis with severe metabolic acidosis and sepsis. She is an [place] female with a past medical history of hypertension, diabetes, hyperlipid emia, currently lives in a halfway facility. She has chronic respiratory failure, status po st tracheostomy and G-tube placement. Other medical history includes seizure disorder. The p atient is noted to have a BUN of 35, creatinine of 2.05. Her blood sugar has been in 500 to 600. S he is being admitted to ICU with Levophed drip and insulin drip for her diabetic ketoacidosis. REVIEW OF SYSTEMS: Unable to obtain from the patient. PAST MEDICAL HISTORY: Notable for chronic respiratory failure, status post tracheostomy, status pos t G-tube, seizure disorder, hypertension, hypothyroidism, history of a previous head injury. PAST SURGICAL HISTORY: History of tracheostomy, history of G-tube placement. SOCIAL HISTORY: No smoking, alcohol, or recreational drug use. FAMILY HISTORY: Not available. PHYSICAL EXAMINATION: VITAL SIGNS: Temperature 99.5, heart rate 143, respiration , blood pressure is 87/45, saturati on 98% on mechanical ventilator through the tracheostomy. HEENT: Tracheostomy site is in place, connected to the ventilator. NECK: Supple. LUNGS: decreased breath sounds with coarse crackles. CARDIOVASCULAR: S2 regular, tachycardia, no murmur. ABDOMEN: Soft. G-tube in place. clear. . NEUROLOGICAL: Uncooperative for exam. PSYCHIATRIC: Not able to assess. LABORATORY DATA/DIAGNOSTIC IMAGING: Sodium 139, potassium 4.2, chloride 110, bicarbonate 10, BUN 35 , creatinine 2.05, glucose 636, calcium 7.2. PT 16.3, PTT 28.1, INR 1.3. WBC 25.9, hemoglobin 16.1 , platelet count is 74. Chest x-ray done in the emergency room shows a tracheostomy with a ventriculoperitoneal shunt along the left chest wall, low lung volumes with basilar atelectasis. IMPRESSION: This is a 55-year-old female who is a halfwaynursing care partner, with chronic respirator y failure, status post tracheostomy, who has been getting admitted to ICU with septic shock, diabeti c ketoacidosis, and renal has been consulted for: 1. Acute kidney injury secondary to ischemic acute tubular necrosis with severe pre-renal azotemia from diabetic ketoacidosis and also contributing diabetic ketoacidosis. 2. Severe metabolic acidosis with a bicarbonate of 11. 3. Diabetic ketoacidosis, on insulin drip. 4. Septic shock. 5. Hypertension. 6. History of chronic respiratory failure, status post tracheostomy, on ventilator. 7. History of G-tube placement. 8. History of previous head injury, status post ventriculoperitoneal shunt. 9. History of hypothyroidism. PLAN: Patient currently seen in the emergency room. Thank you, Dr. Dos Santos, for this consultation. I will continue to resuscitate the patient with IV fluids. The patient has been started on at 150 mL per hour. I will increase her rate t o 275 mL per hour. Levophed drip and insulin drip. Patient is going to ICU. I will order the patient's chemistry stat and the ABG. Depending on the ABG results, we will decide if the patient will need a bicarbonate drip or not. The patient is currently seen in the emergency room. She is getting admitted to the ICU. I will or alma delia the urine studies, renal ultrasound, and the chemistry stat with the ABG. Depending on the ABG, will decide for further bicarbonate drip. Thank you, Dr. Dos Santos, for this consultation. I will continue to follow this patient. Total time spent in this patient's evaluation, making assessment and plan, communicating with the pa tient's family at bedside, communicating with the nursing staff about the plan takes more than 60 mi nutes. Dictated By: SUSIE MCKENNA MD, KP/DANIELLE Conf#: [id number] DID#: [id number]
[2016-04-19] MEDS ORDERED: LISINOPRIL 20 MG TAB GTB SCH (09:00)
== END 2016-04-19 03:46 | disposition expired | DRG 871 ==
LOC: E/R 07:19 → ICU 11:06
PROVIDERS: ADMIT Internal Medicine; ATTEND Internal Medicine
PROC: 5A1935Z Respiratory Ventilation, Less than 24 Consecutive Hours (ICD-10-PCS; principal; 2016-04-18)
DX: A41.9 Sepsis, unspecified organism (principal); R65.21 Severe sepsis with septic shock; N17.0 Acute kidney failure with tubular necrosis; G93.1 Anoxic brain damage, not elsewhere classified; E13.10 Other specified diabetes mellitus with ketoacidosis without coma; J96.10 Chronic respiratory failure, unspecified whether with hypoxia or hypercapnia; E87.2 Acidosis; N39.0 Urinary tract infection, site not specified; E86.0 Dehydration; Z93.0 Tracheostomy status; G40.909 Epilepsy, unspecified, not intractable, without status epilepticus
CPT/HCPCS: 36415; 36600; 71010; 74000; 76775; 76937; 80048; 80053; 81001; 81003; 82550; 82553; 82570; 82803; 82962; 83605; 83735; 84100; 84300; 84484; 85025; 85610; 85730; 87040; 87081; 87086; 89190; 92950; 93005; 94002; 94003; 96365; 96366; 96368; 96375; J0743; J1815; J2543; J3370; J7030; J7040; J7120